=== PATIENT | female | born 1985 ===

== ENCOUNTER 2020-09-24 18:57 | Emergency (ER) | payer OTHER ==
[2020-09-24] MEDS ORDERED: ONDANSETRON 4 MG/2 ML VIAL IVP STA (19:12)
[2020-09-24] MEDS ORDERED: MORPHINE SULFATE 2 MG/ML SYRINGE IVP STA (19:12)
[2020-09-24] MEDS ORDERED: KETOROLAC 15 MG/ML 1 ML VIAL IVP STA (19:12)
--- NOTE | 2020-09-24 19:48 | ED ---
Upper Extremity HPI - General Chief Complaint: Extremity Injury, Upper Stated Complaint: Fall/Lt arm injury Time Seen by Provider: 09/24/20 19:05 Source: patient, EMS Mode of arrival: EMS Limitations: no limitations - History of Present Illness Initial Comments: 34 year-old female patient presents to the emergency department for evaluation of left arm injury. Patient states she was climbing up on a "little tykes" plastic playset while playing with her daughter when the play set collapsed. Patient states that she injured her arm and passed out from the pain. She does not believe she hit her head. States her arm appeared deformed. She reports some numbness to the left hand. She is reporting pain in to her left elbow. She denies any neck or back pain. She was brought in by ambulance but initially refused pain medication. Denies any injury to the lower extremity. There has been no vomiting, she denies nausea. Denies use of blood thinning mediations. Denies any chance of . - Related Data Previous Rx's Medication Instructions Recorded Ibuprofen [Motrin] 600 mg PO Q8HR PRN #30 tab 09/24/20 Allergies Allergy/AdvReac Type Severity Reaction Status Date / Time Tetracyclines Allergy Unknown Verified 09/24/20 19:04 Review of Systems ROS Statement: Those systems with pertinent positive or pertinent negative responses have been documented in the HPI. ROS Other: All systems not noted in ROS Statement are negative. Past Medical History Past Medical History: Thyroid Disorder Additional Past Medical History / Comment(s): endometreosis History of Any Multi-Drug Resistant Organisms: None Reported Additional Past Surgical History / Comment(s): ovarian cyst. Past Psychological History: Depression Smoking Status: Never smoker Past Alcohol Use History: None Reported Past Drug Use History: None Reported General Exam Limitations: no limitations General appearance: alert, in no apparent distress, other (Physical well- developed, well-nourished adult female patient in no acute distress. Vital signs upon presentation temperature 100.2F, pulse 83, respirations 20, blood pressure 120/72, pulse ox 98% on room air.) Head exam: Present: atraumatic, normocephalic, normal inspection Eye exam: Present: normal appearance, PERRL, EOMI. Absent: scleral icterus, conjunctival injection, periorbital swelling ENT exam: Present: normal exam, normal oropharynx, mucous membranes moist Neck exam: Present: normal inspection, full ROM, other (Nontender, no step-off, no deformity to firm midline palpation of the posterior cervical spine. Full range of motion without pain or limitation.). Absent: tenderness, meningismus, lymphadenopathy Respiratory exam: Present: normal lung sounds bilaterally. Absent: respiratory distress, wheezes, rales, rhonchi, stridor Cardiovascular Exam: Present: regular rate, normal rhythm, normal heart sounds. Absent: systolic murmur, diastolic murmur, rubs, gallop, clicks GI/Abdominal exam: Present: soft, normal bowel sounds. Absent: distended, tenderness, guarding, rebound, rigid Extremities exam: Present: full ROM, tenderness (Left wrist, forearm, elbow), normal capillary refill, other (Skin to the left arm is pink, warm, dry. Cap refill is less than 3 seconds. Radial pulses 2+.). Absent: normal inspection (Deformity noted to the left forearm), pedal edema, joint swelling, calf tenderness Neurological exam: Present: alert, oriented X3, CN II-XII intact Psychiatric exam: Present: normal affect, normal mood Skin exam: Present: warm, dry, intact, normal color. Absent: rash Course Vital Signs 09/24/20 09/24/20 09/24/20 19:04 21:11 22:09 Temperature 100.2 F H Pulse Rate 83 68 97 Respiratory 20 20 18 Rate Blood Pressure 120/72 120/85 129/72 O2 Sat by Pulse 98 98 98 Oximetry 09/24/20 09/24/20 09/24/20 22:14 22:24 22:30 Temperature Pulse Rate 98 85 85 Respiratory 16 15 15 Rate Blood Pressure 131/69 121/67 110/63 O2 Sat by Pulse 97 94 L 94 L Oximetry 09/24/20 09/24/20 09/24/20 22:33 22:46 23:00 Temperature Pulse Rate 84 82 80 Respiratory 16 18 20 Rate Blood Pressure 116/68 116/73 118/63 O2 Sat by Pulse 97 97 98 Oximetry 09/24/20 09/24/20 23:15 23:50 Temperature 98.5 F Pulse Rate 76 75 Respiratory 20 18 Rate Blood Pressure 113/64 117/67 O2 Sat by Pulse 98 99 Oximetry Procedures - Orthopedic Fracture Reduction Fracture #1 Consent Obtained: written consent Side: left Fracture Reduction Location: radius Analgesia: procedural sedation, hematoma block Technique: direct manipulation Post Reduction X-rays Demonstrate: acceptable reduction Post-Reduction Neuro Exam: intact, no change Post-Reduction Vascular Exam: intact, no change Splint Applied: Yes Patient Tolerated Procedure: well Additional Comments: Performed by my attending Dr. Solorzano - Orthopedic Splinting/Casting Injury #1 Side: left Upper Extremity Injury Location: short arm, wrist Upper Extremity Immobilizer: sugar tong splint, Troy wrap, synthetic pre-padded splint Medical Decision Making - Medical Decision Making 34 year-old female patient presented to the emergency department today for evaluation of left wrist injury. Physical examination did reveal deformity of the left wrist. Neurovascular status is intact. X-rays were obtained and did reveal displaced radial head fracture. Negative elbow x-ray. My attending was in and did attempt to perform a hematoma block, patient still had significant pain so we did do conscious sedation with closed reduction of the left wrist as documented. Patient was placed in a splint. She did tolerate this well. We discharged follow-up with orthopedics for further evaluation as soon as possible. Return parameters were discussed in detail. She verbalizes understanding and agrees with this plan. My attending is Dr. Solorzano. - Radiology Data Radiology results: report reviewed, image reviewed Disposition Clinical Impression: Left radial fracture Disposition: HOME SELF-CARE Condition: Good Instructions (If sedation given, give patient instructions): Wrist Fracture in Adults (ED), Splint Care (ED) Additional Instructions: Take medications as directed. Apply ice to the wrist for at least 20 minutes 4- 5 times daily. Follow-up with customer operations specialist for further evaluation as soon as possible. Call in the morning for an appointment. Return to the emergency department immediately for any new, worsening, or concerning symptoms. Prescriptions: Ibuprofen [Motrin] 600 mg PO Q8HR PRN #30 tab PRN Reason: Pain Is patient prescribed a controlled substance at d/c from ED?: No Referrals: Fanny Wright DO [Primary Care Provider] - 1-2 days Hung Florez DO [Doctor of Osteopathic Medicine] - 1-2 days Time of Disposition: 23:20
--- NOTE | 2020-09-24 20:13 | XR ---
EXAMINATION TYPE: XR elbow limited LT DATE OF EXAM: 09/24/2020 COMPARISON: NONE HISTORY: Pain TECHNIQUE: 2 views FINDINGS: I see no fracture nor dislocation. Joint spaces are normal. There is no sign of elbow joint effusion. IMPRESSION: Negative left elbow exam.
--- NOTE | 2020-09-24 20:14 | XR ---
EXAMINATION TYPE: XR forearm LT DATE OF EXAM: 09/24/2020 COMPARISON: NONE HISTORY: Pain TECHNIQUE: 2 views FINDINGS: There is transverse fracture distal radial metaphysis. There is 100% posterior displacement with some overriding. There is no dislocation at the radiocarpal joint. The proximal radius and ulna appear intact. Distal ulna is intact. Carpal bones are intact. IMPRESSION: Displaced transverse fracture distal radial metaphysis.
--- NOTE | 2020-09-24 20:15 | XR ---
EXAMINATION TYPE: XR wrist limited LT DATE OF EXAM: 09/24/2020 COMPARISON: NONE HISTORY: Pain. Fall TECHNIQUE: 2 views FINDINGS: There is transverse fracture distal radial metaphysis. There is 100% posterior offset and s light overriding of the fragments. There is no dislocation. Distal ulna is intact. Carpal bones are i ntact. Metacarpals are intact. IMPRESSION: Acute displaced distal radius fracture.
[2020-09-24] MEDS ORDERED: BUPIVACAINE (PF) 0.5% 30 ML VIAL MISCELLANE STA (20:25)
[2020-09-24] MEDS ORDERED: LIDOCAINE 1% INJ 10MG/ML (20 ML MDV) SQ ONE (20:25)
[2020-09-24] MEDS ORDERED: PROPOFOL 10 MG/ML 20 ML VIAL IV STA (21:36)
[2020-09-24] MEDS ORDERED: HYDROmorphone 0.5 MG/0.5 ML SYRINGE IVP STA (21:52)
[2020-09-24] MEDS ORDERED: ACET/COD 300 MG/30 MG STARTER PACK 6 TAB BTL PO STA (21:52)
[2020-09-24] MEDS ORDERED: PROPOFOL 10 MG/ML 20 ML VIAL IV ONE (22:45)
--- NOTE | 2020-09-24 22:58 | XR ---
EXAMINATION TYPE: XR wrist limited LT DATE OF EXAM: 09/24/2020 COMPARISON: Today HISTORY: Post reduction TECHNIQUE: 2 views FINDINGS: 2 images through the cast show comminuted transverse fracture distal radial metaphysis. The re is 50% posterior displacement of the distal major fragment on the lateral view. There is fairly no rmal alignment. Carpal bones are intact. IMPRESSION: There is improved anatomic apposition and alignment of the fragments compared to initial exam.
[2020-09-24 23:21] VITALS: TEMP 98.5
[2020-09-24 23:51] VITALS: BP 117/67; PULSE 75; RESP 18
== END 2020-09-24 23:51 | disposition home or self-care (01) ==
LOC: EC 18:57
DX: S52.322A Displaced transverse fracture of shaft of left radius, initial encounter for closed fracture (principal); S52.592A Other fractures of lower end of left radius, initial encounter for closed fracture; Z88.1 Allergy status to other antibiotic agents; W20.8XXA Other cause of strike by thrown, projected or falling object, initial encounter; Y92.89 Other specified places as the place of occurrence of the external cause; Y93.89 Activity, other specified
CPT/HCPCS: 25505; 99284; 73070; 73090; 73100; 96374 ×2; 96375; J2405; J2001; J2270; J1885; J2704; J1170

== ENCOUNTER → 2020-09-30 | Outpatient (CLI) | payer OTHER ==
--- NOTE | 2020-09-30 14:34 | CT ---
EXAMINATION TYPE: CT wrist LT wo con DATE OF EXAM: 09/30/2020 COMPARISON: Plain films 09/24/2020 HISTORY: left wrist pain following fall CT DLP: 124.[address] of the left wrist with reconstruction imaging. TECHNIQUE: Unenhanced CT of the left wrist was performed with bone and soft tissue window settings aguilera bmitted in the axial coronal and sagittal planes. At a separate workstation [id number] TR imaging was obtai kevin. FINDINGS: There is a distal radial fracture which is transversely oriented at the diametaphyseal smith on. There is ventral displacement of the proximal fracture component of 9.4 mm. There is moderate fra cture comminution. Soft tissue deformity and edema noted. No additional fractures present. IMPRESSION: 1. As above
== END | disposition home or self-care (01) ==
LOC: RADCTMAIN 13:56
PROVIDERS: ATTEND Orthopaedic Surgery
DX: S52.532D Colles' fracture of left radius, subsequent encounter for closed fracture with routine healing (principal); X58.XXXD Exposure to other specified factors, subsequent encounter

== ENCOUNTER 2020-10-03 11:20 | Day surgery (SDC) | payer OTHER ==
[2020-10-01 15:32] VITALS: BMI 25.3
[~2020-10-03 11:20] MED LIST: DEXAMETHASONE SOD PHOSPHATE 4 MG/ML 1 ML VIAL IV ONE; LACTATED RINGERS 1,000 ML IV SCH; LIDOCAINE 1% (10MG/ML) FOR IV START INTRADERMA PRN; ONDANSETRON 4 MG/2 ML VIAL IVP ONE
[2020-10-03] MEDS ORDERED: ONDANSETRON 4 MG/2 ML VIAL ONE (12:07)
[2020-10-03] MEDS ORDERED: fentaNYL (PF) 50 MCG/ML 2 ML AMP IV ONE (12:42)
[2020-10-03] MEDS ORDERED: MIDAZOLAM 2 MG/2 ML VIAL IV ONE (12:42)
[2020-10-03 13:01] VITALS: RESP 16
[2020-10-03] MEDS ORDERED: PROPOFOL 10 MG/ML 20 ML VIAL IV ONE (13:18)
[2020-10-03] MEDS ORDERED: ROPIVACAINE 5 MG/ML 30 ML VIAL ONE (13:18)
[2020-10-03] MEDS ORDERED: fentaNYL (PF) 50 MCG/ML 2 ML AMP ONE (13:18)
[2020-10-03] MEDS ORDERED: LIDOCAINE 1% INJ 10MG/ML (20 ML MDV) ONE (13:18)
[2020-10-03] MEDS ORDERED: MIDAZOLAM 2 MG/2 ML VIAL ONE (13:18)
[2020-10-03] MEDS ORDERED: DEXAMETHASONE SOD PHOSPHATE 4 MG/ML 1 ML VIAL ONE (13:18)
--- NOTE | 2020-10-03 13:43 | P.ANPRN ---
Procedure Note - Anesthesia - Nerve Block Performed Left Supraclavicular Single Date of Procedure: 10/03/20 Procedure Start Time: 12:37 Procedure Stop Time: 12:54 Location of Patient: PreOp Indication: Acute Post-Operative Pain, Requested by Surgeon Sedation Type: Sedate with meaningful contact maintained Preparation: Sterile Prep Position: Supine Catheter: None Needle Types: Pajunk Needle Gauge: 21 Ultrasound used to visualize needle placement: Yes Ultrasound used to observe medication spread: Yes Blood Aspirated: No Pain Paresthesia on Injection Noted: No Resistance on Injection: Normal Image Stored and Saved: Yes Events: Uneventful and Well Tolerated (25cc 0.5% Ropivicaine utilized after intermittent aspiration. Ultrasound utilized for needle placement and medication spread.)
--- NOTE | 2020-10-03 15:06 | P.OP ---
Date of Procedure: 10/03/20 Procedure(s) Performed: ORIF left distal radius fracture and open carpal tunnel release PREOPERATIVE DIAGNOSES: 1. Left wrist distal radius comminuted extraarticular displaced fracture 2. Left hand acute carpal tunnel syndrome associated with distal radius fracture POSTOPERATIVE DIAGNOSES: 1. Left wrist distal radius comminuted extraarticular displaced fracture 2. Left hand acute carpal tunnel syndrome associated with distal radius fracture PROCEDURES PERFORMED: 1. Left distal radius open reduction and internal fixation with volar locking plate 2. Left hand carpal tunnel release ANESTHESIA: Local with IV sedation CROSS TIE MAKER: None COMPLICATIONS: None ESTIMATED BLOOD LOSS: Less than 1 mL DISPOSITION: To post-anesthesia care unit INDICATIONS: Yun is a 34 year old female who has had a displaced distal radius fracture and associated carpal tunnel syndrome. She has had a reduction in the office but the fracture is still displaced. We have discussed options and I have recommended ORIF of the distal radius and carpal tunnel release. She wishes to proceed. I discussed the steps of the surgery as well as potential risks and complications as being inclusive of, but not limited to: Bleeding, infection, scarring, discomfort, blood vessel and/or nerve damage, need for further surgery, stiffness, tendon injury, persistence or recurrence of symptoms and other risks. The patient is aware of these risks and wishes to proceed with surgery. The consent form has been signed. PROCEDURE: After appropriate consent was obtained, the patient was taken to the operating room placed in the supine position. Anesthesia was initiated, and after confirmation of adequate anesthesia, the patient was carefully positioned. Care was taken to make sure that all pressure points were adequately padded. Timeout was called, confirming patient identity, side, procedure, and no antibiotics were administered. Limb was exsanguinated with an Esmarch bandage and the tourniquet was inflated to 250 mmHg. Total tourniquet time for the case was approximately 53 minutes. Incision was created just radial to the flexor carpi radialis tendon. Dissection proceeded between this tendon and the radial artery, which was carefully dissected and protected throughout the case. Dissection proceeded to the deeper tissues where the pronator quadratus was noted. The wrist was rotated and the PQ was released radially from its attachment to the radius and dissected off the bone with an elevator. Good exposure of the fracture site was accomplished. Reduction was accomplished with careful but deliberate manual manipulation at the fracture site until an acceptable reduction had been accomplished. The preliminary reduction was held with a 1.6 mm pin and mini-c-arm was used to assess the reduction. Adjustments to the reduction were made as needed. Retractors were placed on the ulnar side of the bone and a volar locking plate from [employer] (2.4 mm variable angle two column plate) was utilized and applied to the bone. the proximal slotted screw was filled first. This screw had bicortical purchase. Plate position was adjusted according to mini-c-arm guidance and a 1.6 mm pin was placed distally to hold the distal fragment. Distal row of screws was placed with assistance of the cone guide. Initial screw placed was a unicortical non locking screw to assist in bringing the bone to the plate. Each screw was sequentially checked for placement and p osition with mini-c-arm to make sure there was no penetration to the dorsal surface. Once these screws were placed, another proximal screw was placed in the plate and then the final mini-c-arm images were taken and saved. Next, the carpal tunnel release was performed. Incision was created in line with the radial border of the fourth ray at the base of the palm. Incision was carried down through skin and then lightly spread down to palmar fascia. Retractors were placed. Excellent visualization of the palmar fascia was accomplished and the palmar fascia was incised to reveal the underlying transverse carpal ligament. The ligament was incised sharply using a knife and released in 1 mm increments both proximally and distally to the extent of the wound. Further fascial releases were performed in both directions using gentle push technique with curved small Metzenbaum scissors. Full release was confirmed with visual inspection and instrument palpation. The underlying structures of the carpal tunnel were noted to be fairly normal without evidence of significant tenosynovitis. Thorough irrigation was performed using normal saline. Tourniquet was deflated and combination of electrocautery and pressure was used for hemostasis. Finger capillary refill was less than 2 seconds and there was no evidence of any pulsatile bleeding. Closure was performed using vertical mattress 4-0 nylon suture in the carpal tunnel incision and 3-0 Vicryl subq followed by 3-0 monocryl for the skin and cyanoacrylate topical closure. Sterile dressing was applied and further pressure was held over the wound for 3 minutes for additional hemostasis. Vascular status remained good with less than 2 second capillary refill. Well padded well molded volar splint was applied with plaster slab. Patient tolerated the procedure well and taken to recovery room in stable condition. Counts were correct.
[2020-10-03 15:08] VITALS: TEMP 96.8
[2020-10-03 15:45] VITALS: BP 104/58
[2020-10-03 16:03] VITALS: PULSE 72
== END 2020-10-03 16:23 | disposition home or self-care (01) ==
LOC: OR 11:20
PROVIDERS: ATTEND Orthopaedic Surgery
DX: G56.02 Carpal tunnel syndrome, left upper limb (principal); S52.592A Other fractures of lower end of left radius, initial encounter for closed fracture; F32.9 Major depressive disorder, single episode, unspecified; E06.3 Autoimmune thyroiditis; Z91.040 Latex allergy status; Z91.018 Allergy to other foods; G60.2 Neuropathy in association with hereditary ataxia
CPT/HCPCS: 25607; 64721; 81025; 64415; 76942; C1713; J2250; J1100; J0690; J2405; J3010